=== PATIENT | female | born 1985 ===

== ENCOUNTER 2017-05-21 18:12 | Emergency (ER) | payer MEDICAID ==
[2017-05-21 18:38] VITALS: PULSE 68; RESP 18; TEMP 97.8; O2SAT 100
[2017-05-21] MEDS ORDERED: TDAP Vaccine 0.5 mL Syr IM ONE (19:34)
--- NOTE | 2017-05-21 19:38 | ED PDOC ---
HPI: Skin/Bite Injury Time Seen by Provider: 05/21/17 18:22 Chief Complaint (Nursing): Bite Chief Complaint (Provider): Dog bite, left humb History Per: Patient History/Exam Limitations: no limitations Onset/Duration Of Symptoms: Hrs Current Symptoms Are (Timing): Better Quality Of Symptoms: Painful Severity: Mild Pain Scale Rating Of: 2 Additional Complaint(s): Pt states she has unknown tetanus. PT states an older man was walking a small white dog who looked well maintained. The man said the dog is his granddaughter and it goes to the vet but is not sure about immunization status. Pt states that she has a small amount of localized pain. Past Medical History Vital Signs: Last Vital Signs Temp 97.8 F 05/21/17 18:36 Pulse 68 05/21/17 18:36 Resp 18 05/21/17 18:36 BP Pulse Ox 100 05/21/17 18:36 - Surgical History Surgical History: No Surg Hx - Family History Family History: States: No Known Family Hx - Home Medications Home Medications: Ambulatory Orders Medication Instructions Recorded Doxycycline Monohydrate 100 mg PO BID #28 tablet 02/13/16 Naproxen 375 mg PO Q8 PRN #21 tab 02/13/16 oxyCODONE [oxyCODONE Immediate 5 mg PO Q8 PRN #8 tab 02/13/16 Release Tab] Doxycycline Monohydrate 100 mg PO BID #20 capsule 05/21/17 - Allergies Allergies/Adverse Reactions: Allergies Allergy/AdvReac Type Severity Reaction Status Date / Time acetaminophen [From Tylenol] Allergy ANAPHYLAXIS Verified 02/13/16 18:48 amoxicillin Allergy RASH Verified 05/21/17 18:36 Physical Exam - Reviewed Nursing Documentation Reviewed: Yes Vital Signs Reviewed: Yes - Physical Exam Appears: Positive for: Well, Non-toxic, No Acute Distress Head Exam: Positive for: ATRAUMATIC, NORMAL INSPECTION, NORMOCEPHALIC Skin: Positive for: Warm. Negative for: Normal Color (Small round abrasion/ superficial puncture wound left thumb ) Eye Exam: Positive for: Normal appearance ENT: Positive for: Normal ENT Inspection Neck: Positive for: Normal, Painless ROM Respiratory: Negative for: Accessory Muscle Use, Respiratory Distress Back: Positive for: Normal Inspection Extremity: Positive for: Normal ROM Neurologic/Psych: Positive for: Alert, Oriented - ECG O2 Sat by Pulse Oximetry: 100 Medical Decision Making Medical Decision Making: Pros/Cons of tetanus and rabies vaccine discussed with patient. Disposition - Clinical Impression Clinical Impression: Animal bite wound, Tetanus toxoid vaccination administered at current visit - Patient ED Disposition Is Patient to be Admitted: No Counseled Patient/Family Regarding: Diagnosis, Need For Followup, Rx Given - Disposition Referrals: [facility] [Outside] Disposition: Routine/Home Disposition Time: 19:38 Condition: GOOD Prescriptions: Doxycycline Monohydrate 100 mg PO BID #20 capsule Instructions: Animal Bite (ED)
[2017-05-21 19:50] VITALS: BP 131/71
== END 2017-05-21 19:49 | disposition home or self-care (01) ==
LOC: H.ER 18:12
DX: S61.052A Open bite of left thumb without damage to nail, initial encounter (principal); W54.0XXA Bitten by dog, initial encounter; Y92.89 Other specified places as the place of occurrence of the external cause

== ENCOUNTER 2017-11-25 07:53 | Emergency (ER) | payer BC, MEDICAID, OTHER ==
[2017-11-25 07:59] VITALS: BMI 27.7
[2017-11-25 08:00] VITALS: BP 113/69; PULSE 92; RESP 16; TEMP 98.3; O2SAT 97
--- NOTE | 2017-11-25 09:35 | ED PDOC ---
HPI: General Adult Time Seen by Provider: 11/25/17 08:28 Chief Complaint (Nursing): Flu-like Symptoms Chief Complaint (Provider): Flu-like Symptoms History Per: Patient History/Exam Limitations: no limitations Onset/Duration Of Symptoms: Days (x yesterday) Current Symptoms Are (Timing): Still Present Additional Complaint(s): Joana is a 32 year old female who presents to the emergency department complaining of flu-like symptoms since yesterday. Patient reports fever, cough, headache, body aches and chills. Patient states she took her temperature yesterday and was measured at 102. Patient's daughter is also sick with similar symptoms. No other medical problems at this time. PMD: Provider TBD Past Medical History Reviewed: Historical Data, Nursing Documentation, Vital Signs Vital Signs: Last Vital Signs Temp 98.3 F 11/25/17 07:59 Pulse 92 H 11/25/17 07:59 Resp 16 11/25/17 07:59 BP 113/69 11/25/17 07:59 Pulse Ox 97 11/25/17 09:40 - Medical History PMH: No Chronic Diseases - Surgical History Surgical History: No Surg Hx - Family History Family History: States: Unknown Family Hx - Social History Current smoker - smoking cessation education provided: No Alcohol: None Drugs: Denies - Home Medications Home Medications: Ambulatory Orders Medication Instructions Recorded Doxycycline Monohydrate 100 mg PO BID #28 tablet 02/13/16 Naproxen 375 mg PO Q8 PRN #21 tab 02/13/16 oxyCODONE [oxyCODONE Immediate 5 mg PO Q8 PRN #8 tab 02/13/16 Release Tab] Doxycycline Monohydrate 100 mg PO BID #20 capsule 05/21/17 Loratadine/Pseudoephedrine 1 each PO DAILY PRN #5 tab.er.24h 11/25/17 [Claritin-D 24 Hour Tablet] - Allergies Allergies/Adverse Reactions: Allergies Allergy/AdvReac Type Severity Reaction Status Date / Time acetaminophen [From Tylenol] Allergy ANAPHYLAXIS Verified 02/13/16 18:48 amoxicillin Allergy RASH Verified 05/21/17 18:36 Review of Systems ROS Statement: Except As Marked, All Systems Reviewed And Found Negative Constitutional: Positive for: Fever, Chills, Other (Body aches) Respiratory: Positive for: Cough Neurological: Positive for: Headache Physical Exam - Reviewed Nursing Documentation Reviewed: Yes Vital Signs Reviewed: Yes - Physical Exam Appears: Positive for: Well, Non-toxic Head Exam: Positive for: ATRAUMATIC, NORMAL INSPECTION, NORMOCEPHALIC Skin: Positive for: Normal Color, Warm, Dry Eye Exam: Positive for: Normal appearance ENT: Positive for: Normal ENT Inspection (Clear), Pharynx Is (Clear), TM Is/Are (WNL), Nasal Congestion. Negative for: Sinus Pain/Drainage, Pharyngeal Erythema , Tonsillar Exudate, Tonsillar Swelling Neck: Positive for: Normal Cardiovascular/Chest: Positive for: Regular Rate, Rhythm Respiratory: Positive for: Normal Breath Sounds. Negative for: Respiratory Distress Gastrointestinal/Abdominal: Positive for: Normal Exam Back: Positive for: Normal Inspection Extremity: Positive for: Normal ROM. Negative for: Deformity Neurologic/Psych: Positive for: Alert, Oriented (x 3) - ECG O2 Sat by Pulse Oximetry: 97 (RA) Pulse Ox Interpretation: Normal Medical Decision Making Medical Decision Making: Time: 08:49 Impression: Nasal Congestion Plan: - ED Urine - Influenza A B Stat Time: 09:00 (-) for flu a/b Scribe Attestation: Documented by Pino Mario, acting as a scribe for Anna Croft MD Provider Scribe Attestation: All medical record entries made by the Scribe were at my direction and personally dictated by me. I have reviewed the chart and agree that the record accurately reflects my personal performance of the history, physical exam, medical decision making, and the department course for this patient. I have also personally directed, reviewed, and agree with the discharge instructions and disposition. Disposition - Clinical Impression Clinical Impression: URI (upper respiratory infection) - Disposition Referrals: [facility] [Outside] Disposition: Routine/Home Disposition Time: 10:03 Condition: STABLE Prescriptions: Loratadine/Pseudoephedrine [Claritin-D 24 Hour Tablet] 1 each PO DAILY PRN #5 tab.er.24h PRN Reason: Allergy Symptoms Instructions: Upper Respiratory Infection (ED) Forms: [facility] (Vincentian) Print Language: MALTESE
== END 2017-11-25 10:16 | disposition home or self-care (01) ==
LOC: H.ER 07:53
DX: J06.9 Acute upper respiratory infection, unspecified (principal)

== ENCOUNTER 2018-04-15 09:45 | Emergency (ER) | payer OTHER ==
[2018-04-15 09:46] VITALS: BMI 27.7
--- NOTE | 2018-04-15 10:21 | ED PDOC ---
HPI: Female Pain Time Seen by Provider: 04/15/18 10:12 Chief Complaint (Provider): with abd pain and bleeding History Per: Patient Additional Complaint(s): 32-year-old female currently 4 weeks (LMP March 15) presents with abdominal pain and spotting that started yesterday. Patient also has dysuria. She denies any fever or chills. Patient has nausea with no vomiting. This is her third and she denies history of miscarriage or ectopic (). OB: Dr. Arnold Past Medical History Reviewed: Historical Data, Nursing Documentation, Vital Signs - Medical History PMH: No Chronic Diseases - Surgical History Surgical History: No Surg Hx - Family History Family History: States: No Known Family Hx - Living Arrangements Living Arrangements: With Family - Social History Current smoker - smoking cessation education provided: No Ex-Smoker (has not smoked in the last 12 months): No Alcohol: None Drugs: Denies - Home Medications Home Medications: Ambulatory Orders Medication Instructions Recorded Doxycycline Monohydrate 100 mg PO BID #28 tablet 02/13/16 Naproxen 375 mg PO Q8 PRN #21 tab 02/13/16 oxyCODONE [oxyCODONE Immediate 5 mg PO Q8 PRN #8 tab 02/13/16 Release Tab] Doxycycline Monohydrate 100 mg PO BID #20 capsule 05/21/17 Loratadine/Pseudoephedrine 1 each PO DAILY PRN #5 tab.er.24h 11/25/17 [Claritin-D 24 Hour Tablet] Nitrofurantoin Macrocrystals 100 mg PO BID #14 cap 04/15/18 [Macrobid] Comb No.42/Folic Acid 1 tab PO DAILY #60 tab 04/15/18 [Prena1 Chew] - Allergies Allergies/Adverse Reactions: Allergies Allergy/AdvReac Type Severity Reaction Status Date / Time acetaminophen [From Tylenol] Allergy ANAPHYLAXIS Verified 02/13/16 18:48 amoxicillin Allergy RASH Verified 05/21/17 18:36 Review of Systems ROS Statement: Except As Marked, All Systems Reviewed And Found Negative Constitutional: Negative for: Fever Cardiovascular: Negative for: Chest Pain Respiratory: Negative for: Cough Gastrointestinal: Positive for: Nausea, Abdominal Pain. Negative for: Vomiting Genitourinary Female: Positive for: Dysuria, Vaginal Bleeding (spotting), Pelvic Pain Physical Exam - Reviewed Nursing Documentation Reviewed: Yes Vital Signs Reviewed: Yes - Physical Exam Appears: Positive for: Well, Non-toxic, No Acute Distress Skin: Positive for: Normal Color. Negative for: Rash Eye Exam: Positive for: Normal appearance Cardiovascular/Chest: Positive for: Regular Rate, Rhythm Respiratory: Positive for: Normal Breath Sounds. Negative for: Wheezing, Respiratory Distress Gastrointestinal/Abdominal: Positive for: Soft. Negative for: Tenderness, Distended, Guarding, Rebound Back: Negative for: L CVA Tenderness, R CVA Tenderness Extremity: Positive for: Normal ROM Neurologic/Psych: Positive for: Alert, Oriented - Laboratory Results Result Diagrams: 04/15/18 11:19 04/15/18 11:19 Urine POC: Positive - ECG O2 Sat by Pulse Oximetry: 99 Pulse Ox Interpretation: Normal - Other Rad TV OB US X-Ray: Read By Radiologist X-Ray Interpretation: see below Medical Decision Making Medical Decision Makin32 year old female with abdominal pain and spotting Plan: Urine dip Urine test CBC CMP Beta TV OB US IVF UTI noted - will given rx macrobid US: FINDINGS: UTERUS: Measures 9.0 x 4.1 x 4.8 cm. Normal in size and appearance. No fibroid or other mass lesion seen. ENDOMETRIUM: Measures 15 mm in diameter. No intrauterine gestational sac identified. Cannot rule out ectopic in the absence of an intrauterine gestation. CERVIX: No cervical abnormality identified. RIGHT OVARY: Measures 2.4 x 1.5 x 1.8 cm. No solid mass. Normal flow. LEFT OVARY: Measures 2.4 x 1.8 x 1.9 cm. No solid mass. Normal flow. FREE FLUID: No significant free fluid noted. OTHER FINDINGS : None. IMPRESSION: No intrauterine gestation identified. Cannot rule out ectopic . Followup with serial beta HCG evaluation and if warranted, transvaginal pelvic ultrasound examination. Otherwise unremarkable. Beta is 765. Patient aware of all diagnostic testing results, all questions answered. Patient was instructed to follow up with OB in 2-3 days for repeat labs. Prescriptions given for Macrobid and vitamins. Disposition - Clinical Impression Clinical Impression: Urinary tract infection, Abdominal pain during - Patient ED Disposition Is Patient to be Admitted: No Counseled Patient/Family Regarding: Studies Performed, Diagnosis, Need For Followup, Rx Given - Disposition Referrals: Yovani Cm DPM [Primary Care Provider] - José Miguel Arnold MD [Staff Provider] - Disposition: Routine/Home Disposition Time: 13:42 Condition: STABLE Additional Instructions: Take prescription meds as directed. Follow-up with OB for repeat labs in 4-5 days. Prescriptions: Nitrofurantoin Macrocrystals [Macrobid] 100 mg PO BID #14 cap Comb No.42/Folic Acid [Prena1 Chew] 1 tab PO DAILY #60 tab Instructions: Urinary Tract Infections in Adults, - The First Month Results - Lab Results Lab Results: 04/15/18 04/15/18 04/15/18 11:19 11:19 11:19 WBC 6.9 RBC 4.23 Hgb 12.3 Hct 38.1 MCV 90.0 D MCH 29.1 MCHC 32.3 L RDW 14.1 Plt Count 289 MPV 8.1 Neut % (Auto) 73.8 Lymph % (Auto) 19.7 L [place] % (Auto) 5.6 Eos % (Auto) 0.4 Baso % (Auto) 0.5 Neut # (Auto) 5.1 Lymph # (Auto) 1.4 [place] # (Auto) 0.4 Eos # (Auto) 0.0 Baso # (Auto) 0.0 Sodium 137 Potassium 3.8 Chloride 106 Carbon Dioxide 23 Anion Gap 12 BUN 11 Creatinine 0.5 L Est GFR ( Amer) > 60 Est GFR (Non-Af Amer) > 60 Random Glucose 90 Calcium 8.8 Total Bilirubin 0.9 AST 23 ALT 18 Alkaline Phosphatase 81 Total Protein 7.8 Albumin 3.8 Globulin 4.0 H Albumin/Globulin Ratio 0.9 L Beta HCG, Quant 768.25 Urine Color Yellow Urine Clarity Hazy Urine pH 5.5 Ur Specific [place] 1.030 Urine Protein Negative Urine Glucose (UA) Neg Urine Ketones Negative Urine Blood Negative Urine Nitrate Negative Urine Bilirubin Negative Urine Urobilinogen 0.2 Ur Leukocyte Esterase Small Urine RBC (Auto) 17 H Urine Microscopic WBC 52 H Ur Squamous Epith Cells 35 H Urine Bacteria Occ H
[2018-04-15 10:27] VITALS: PULSE 87; RESP 16; O2SAT 99
[2018-04-15] MEDS ORDERED: Sodium Chloride 0.9% 1,000 ML IV STA (10:49)
[2018-04-15 11:24] LABS: BASO % 0.5 % (0.0-2.0); EOS % 0.4 % (0.0-4.0); HEMOGLOBIN 12.3 g/dL (12.0-16.0); LYMPH # 1.4 K/uL (1.0-4.3); LYMPH % 19.7 % (20.0-40.0); MEAN CORPUSCULAR HEMOGLOBIN 29.1 pg (27.0-31.0); MEAN CORPUSCULAR HGB CONC 32.3 g/dL (33.0-37.0); MEAN PLATELET VOLUME 8.1 fl (7.2-11.7); MONO # 0.4 K/uL (0.0-0.8); MONO % 5.6 % (0.0-10.0); NEUT # 5.1 K/uL (1.8-7.0); NEUT % 73.8 % (50.0-75.0); RBC 4.23 Mil/uL (3.80-5.20); RED CELL DISTRIBUTION WIDTH 14.1 % (11.5-14.5); WHITE BLOOD COUNT 6.9 K/uL (4.8-10.8)
[2018-04-15 11:34] LABS: SQUAMOUS EPITHIAL 35 /hpf (0-5); URINE BACTERIA OCC (<OCC)
[2018-04-15 11:37] LABS: ALB/GLOB RATIO 0.9 (1.0-2.1); ALBUMIN 3.8 g/dL (3.5-5.0); ALT/SGPT 18 U/L (9-52); AST/SGOT 23 U/L (14-36); BLOOD UREA NITROGEN 11 mg/dl (7-17); CALCIUM 8.8 mg/dL (8.4-10.2); GFR AFRICAN-AMERICAN > 60; GFR NON-AFRICAN AMERICAN > 60
[2018-04-15 11:49] LABS: PH,URINE 5.5 (5.0-8.0); URINE BILIRUBIN NEGATIVE (NEGATIVE); URINE BLOOD NEGATIVE (NEGATIVE); URINE CLARITY Hazy (Clear); URINE COLOR YELLOW (YELLOW); URINE GLUCOSE (UA) NEG (Normal)
[2018-04-15 11:50] LABS: URINE LEUKOCYTE ESTERASE SMALL Leu/uL (Negative); URINE PROTEIN NEGATIVE (NEGATIVE); URINE UROBILINOGEN 0.2 mg/dL (0.2-1.0)
--- NOTE | 2018-04-15 13:24 | US ---
HISTORY: approx 5 weeks with pain and bleeding COMPARISON: None available. TECHNIQUE: Transvaginal FINDINGS: UTERUS: Measures 9.0 x 4.1 x 4.8 cm. Normal in size and appearance. No fibroid or other mass lesion seen. ENDOMETRIUM: Measures 15 mm in diameter. No intrauterine gestational sac identified. Cannot rule out ectopic in the absence of an intrauterine gestation. CERVIX: No cervical abnormality identified. RIGHT OVARY: Measures 2.4 x 1.5 x 1.8 cm. No solid mass. Normal flow. LEFT OVARY: Measures 2.4 x 1.8 x 1.9 cm. No solid mass. Normal flow. FREE FLUID: No significant free fluid noted. OTHER FINDINGS: None. IMPRESSION: No intrauterine gestation identified. Cannot rule out ectopic . Followup with serial beta HCG evaluation and if warranted, transvaginal pelvic ultrasound examination. Otherwise unremarkable.
[2018-04-15 14:25] VITALS: BP 118/70; TEMP 97.4
== END 2018-04-15 14:24 | disposition home or self-care (01) ==
LOC: H.ER 09:45
DX: O23.41 Unspecified infection of urinary tract in pregnancy, first trimester (principal); Z3A.01 Less than 8 weeks gestation of pregnancy; Z88.0 Allergy status to penicillin
CPT/HCPCS: 76817; 80053; 81003; 81025; 84702; 85025; 87086; 87181; 96360; 99283; J7030

== ENCOUNTER 2018-04-17 18:34 | Emergency (ER) | payer OTHER ==
[2018-04-17 18:34] VITALS: BMI 27.7
[2018-04-17 18:49] VITALS: RESP 16
--- NOTE | 2018-04-17 18:58 | ED PDOC ---
HPI: Female Pain Time Seen by Provider: 04/17/18 18:55 Chief Complaint (Nursing): Female Genitourinary Chief Complaint (Provider): uti History Per: Patient (32 y/o female here called to return for treatment of UTI. Patient is and has had UTI inert to macrobid. Patient has h/o allergy to amoxicillin. Denies any fevers or chills currently.) Past Medical History Reviewed: Historical Data, Nursing Documentation, Vital Signs Vital Signs: Last Vital Signs Temp 98.6 F 04/17/18 18:47 Pulse 92 H 04/17/18 18:47 Resp 16 04/17/18 18:47 BP 130/80 04/17/18 18:47 Pulse Ox 100 04/17/18 18:47 - Family History Family History: States: Unknown Family Hx - Immunization History Hx Tetanus Toxoid Vaccination: Yes Hx Influenza Vaccination: No Hx Pneumococcal Vaccination: No - Home Medications Home Medications: Ambulatory Orders Medication Instructions Recorded Doxycycline Monohydrate 100 mg PO BID #28 tablet 02/13/16 Naproxen 375 mg PO Q8 PRN #21 tab 02/13/16 oxyCODONE [oxyCODONE Immediate 5 mg PO Q8 PRN #8 tab 02/13/16 Release Tab] Doxycycline Monohydrate 100 mg PO BID #20 capsule 05/21/17 Loratadine/Pseudoephedrine 1 each PO DAILY PRN #5 tab.er.24h 11/25/17 [Claritin-D 24 Hour Tablet] Nitrofurantoin Macrocrystals 100 mg PO BID #14 cap 04/15/18 [Macrobid] Comb No.42/Folic Acid 1 tab PO DAILY #60 tab 04/15/18 [Prena1 Chew] Cephalexin [Keflex] 500 mg PO TID #15 capsule 04/17/18 Ondansetron ODT [Zofran ODT] 4 mg PO Q8 PRN #10 odt 04/17/18 - Allergies Allergies/Adverse Reactions: Allergies Allergy/AdvReac Type Severity Reaction Status Date / Time acetaminophen [From Tylenol] Allergy ANAPHYLAXIS Verified 02/13/16 18:48 amoxicillin Allergy RASH Verified 05/21/17 18:36 Review of Systems ROS Statement: Except As Marked, All Systems Reviewed And Found Negative Physical Exam - Reviewed Nursing Documentation Reviewed: Yes Vital Signs Reviewed: Yes - Physical Exam Appears: Positive for: Well, Non-toxic, No Acute Distress Head Exam: Positive for: ATRAUMATIC, NORMAL INSPECTION, NORMOCEPHALIC Skin: Positive for: Normal Color, Warm, DRY Eye Exam: Positive for: EOMI, Normal appearance, PERRL ENT: Positive for: Normal ENT Inspection Neck: Positive for: Normal, Painless ROM Cardiovascular/Chest: Positive for: Regular Rate, Rhythm Respiratory: Positive for: CNT, Normal Breath Sounds Gastrointestinal/Abdominal: Positive for: Normal Exam, Soft Back: Positive for: Normal Inspection Extremity: Positive for: Normal ROM Neurologic/Psych: Positive for: Alert, Oriented - ECG O2 Sat by Pulse Oximetry: 100 Disposition - Clinical Impression Clinical Impression: Urinary tract infection - Patient ED Disposition Is Patient to be Admitted: No - Disposition Disposition: Routine/Home Disposition Time: 20:06 Condition: FAIR Prescriptions: Cephalexin [Keflex] 500 mg PO TID #15 capsule Ondansetron ODT [Zofran ODT] 4 mg PO Q8 PRN #10 odt PRN Reason: Nausea/Vomiting Instructions: Urinary Tract Infections in Adults, Nausea and Vomiting of (DC) Forms: [facility] ED School/Work Excuse Print Language: SWEDISH
[2018-04-17 20:57] VITALS: BP 126/77; PULSE 84; TEMP 98.2; O2SAT 99
== END 2018-04-17 20:34 | disposition home or self-care (01) ==
LOC: H.ER 18:34
DX: O23.40 Unspecified infection of urinary tract in pregnancy, unspecified trimester (principal)

== ENCOUNTER 2018-06-04 10:55 | Emergency (ER) | payer OTHER ==
[2018-06-04 11:01] VITALS: BMI 27.3
[2018-06-04 11:14] VITALS: RESP 16
--- NOTE | 2018-06-04 11:48 | ED PDOC ---
HPI: Skin/Bite Injury Time Seen by Provider: 06/04/18 11:09 Chief Complaint (Nursing): Abnormal Skin Integrity Chief Complaint (Provider): Rash History Per: Patient History/Exam Limitations: no limitations Onset/Duration Of Symptoms: Days (1) Current Symptoms Are (Timing): Still Present Location Of Injury: Right: Arm, Left: Arm, Anterior: Abdomen, Arm Additional History Per: Patient Additional Complaint(s): 33yo female, no past medical history, comes to ER for evaluation of a rash to her bilateral anterior forearms and her anterior abdomen x 1 day. She denies any itching or pain, throat swelling, or shortness of breath. Patient also denies any new foods, linen, or lotions. She does state she was started on Ambien 1 week ago by her doctor, and also 1 week ago she was diagnosed with a viral gastroenteritis with a mild fever. Patient states she took Aleve with relief of symptoms at that time. Additionally, patient states she had a D&C procedure on 05/10/18 and states she was not given any antibiotics or pain medication after; she is now complaining of lower abdomen pain. She denies any vomiting, diarrhea, abnormal vaginal discharge or bleeding. PMD: Yovani Cm Past Medical History Reviewed: Historical Data, Nursing Documentation, Vital Signs Vital Signs: Last Vital Signs Temp 99.0 F 06/04/18 11:11 Pulse 84 06/04/18 11:11 Resp 16 06/04/18 11:11 BP 110/75 06/04/18 11:11 Pulse Ox 99 06/04/18 11:59 - Medical History PMH: No Chronic Diseases - Surgical History Other surgeries: D&C - Family History Family History: States: No Known Family Hx - Immunization History Hx Tetanus Toxoid Vaccination: Yes Hx Influenza Vaccination: No Hx Pneumococcal Vaccination: No - Home Medications Home Medications: Ambulatory Orders Medication Instructions Recorded Doxycycline Monohydrate 100 mg PO BID #28 tablet 02/13/16 Naproxen 375 mg PO Q8 PRN #21 tab 02/13/16 oxyCODONE [oxyCODONE Immediate 5 mg PO Q8 PRN #8 tab 02/13/16 Release Tab] Doxycycline Monohydrate 100 mg PO BID #20 capsule 05/21/17 Loratadine/Pseudoephedrine 1 each PO DAILY PRN #5 tab.er.24h 11/25/17 [Claritin-D 24 Hour Tablet] Nitrofurantoin Macrocrystals 100 mg PO BID #14 cap 04/15/18 [Macrobid] Comb No.42/Folic Acid 1 tab PO DAILY #60 tab 04/15/18 [Prena1 Chew] Cephalexin [Keflex] 500 mg PO TID #15 capsule 04/17/18 Ondansetron ODT [Zofran ODT] 4 mg PO Q8 PRN #10 odt 04/17/18 - Allergies Allergies/Adverse Reactions: Allergies Allergy/AdvReac Type Severity Reaction Status Date / Time acetaminophen [From Tylenol] Allergy ANAPHYLAXIS Verified 02/13/16 18:48 amoxicillin Allergy RASH Verified 05/21/17 18:36 Review of Systems ROS Statement: Except As Marked, All Systems Reviewed And Found Negative Constitutional: Negative for: Fever, Chills Gastrointestinal: Positive for: Abdominal Pain (lower). Negative for: Vomiting , Diarrhea Genitourinary Female: Negative for: Vaginal Discharge, Vaginal Bleeding Skin: Positive for: Rash Physical Exam - Reviewed Nursing Documentation Reviewed: Yes Vital Signs Reviewed: Yes - Physical Exam Appears: Positive for: Non-toxic, No Acute Distress Head Exam: Positive for: ATRAUMATIC, NORMAL INSPECTION, NORMOCEPHALIC Skin: Positive for: Warm, Dry, Rash (maculopapular rash noted to bilateral anterior forearms, and anterior abdomen.) Eye Exam: Positive for: Normal appearance Neck: Positive for: Normal, Painless ROM, Supple Cardiovascular/Chest: Positive for: Regular Rate, Rhythm. Negative for: Murmur Respiratory: Positive for: Normal Breath Sounds. Negative for: Rales, Rhonchi, Wheezing Gastrointestinal/Abdominal: Positive for: Soft, Tenderness (mild suprapubic tendereness). Negative for: Guarding, Rebound Back: Positive for: Normal Inspection. Negative for: L CVA Tenderness, R CVA Tenderness Extremity: Positive for: Normal ROM. Negative for: Pedal Edema Neurologic/Psych: Positive for: Alert, Oriented. Negative for: Motor/Sensory Deficits - Laboratory Results Result Diagrams: 06/04/18 11:30 06/04/18 11:30 - ECG O2 Sat by Pulse Oximetry: 99 (RA) Pulse Ox Interpretation: Normal Medical Decision Making Medical Decision Making: Impression: Viral rash, lower abdominal pain Plan: -- Labs -- Urinalysis -- US Transvaginal -- Serum Beta-HCG Scribe Attestation: Documented by Lis Mccain, acting as a scribe for Laxmi German MD. Provider Scribe Attestation: All medical record entries made by the Scribe were at my direction and personally dictated by me. I have reviewed the chart and agree that the record accurately reflects my personal performance of the history, physical exam, medical decision making, and the department course for this patient. I have also personally directed, reviewed, and agree with the discharge instructions and disposition. Disposition - Clinical Impression Clinical Impression: [place] - Patient ED Disposition Is Patient to be Admitted: No Doctor Will See Patient In The: Office Counseled Patient/Family Regarding: Diagnosis, Need For Followup - Disposition Disposition: Routine/Home Disposition Time: 13:00 Condition: STABLE Additional Instructions: Consider stopping medication and calling your personal physician for a replacement medication for sleep. Instructions: Skin Rash Forms: [facility] (Greek) - POA Present On Arrival: None
[2018-06-04 11:59] LABS: BASO % 0.6 % (0.0-2.0); EOS # 0.1 K/uL (0.0-0.7); EOS % 1.5 % (0.0-4.0); HEMOGLOBIN 12.9 g/dL (12.0-16.0); LYMPH # 1.1 K/uL (1.0-4.3); LYMPH % 27.4 % (20.0-40.0); MEAN CELL VOLUME 86.4 fl (81.0-99.0); MEAN CORPUSCULAR HEMOGLOBIN 28.9 pg (27.0-31.0); MEAN CORPUSCULAR HGB CONC 33.4 g/dL (33.0-37.0); MEAN PLATELET VOLUME 8.1 fl (7.2-11.7); MONO # 0.3 K/uL (0.0-0.8); MONO % 7.1 % (0.0-10.0); NEUT # 2.5 K/uL (1.8-7.0); NEUT % 63.4 % (50.0-75.0); NRBC % 0.3 % (0.0-0.0); RBC 4.47 Mil/uL (3.80-5.20); RED CELL DISTRIBUTION WIDTH 13.3 % (11.5-14.5); SQUAMOUS EPITHIAL 4 /hpf (0-5); URINE BACTERIA OCC (<OCC); URINE BILIRUBIN NEGATIVE (NEGATIVE); URINE BLOOD SMALL (NEGATIVE); URINE CLARITY SLIGHTY-CLOUDY (Clear); URINE COLOR YELLOW (YELLOW); URINE GLUCOSE (UA) NEG (Normal); URINE LEUKOCYTE ESTERASE TRACE Leu/uL (Negative); URINE PROTEIN NEGATIVE (NEGATIVE); URINE UROBILINOGEN 0.2-1.0 mg/dL (0.2-1.0)
[2018-06-04 12:09] LABS: ALB/GLOB RATIO 1.1 (1.0-2.1); ALBUMIN 4.3 g/dL (3.5-5.0); ALT/SGPT 21 U/L (9-52); AST/SGOT 37 U/L (14-36); BLOOD UREA NITROGEN 9 mg/dl (7-17); CALCIUM 8.9 mg/dL (8.4-10.2); GFR AFRICAN-AMERICAN > 60; GFR NON-AFRICAN AMERICAN > 60
--- NOTE | 2018-06-04 13:21 | US ---
Date of service: 06/04/2018 HISTORY: s/p TOP 05/10/2018 - still has mild lower abd pain COMPARISON: Comparison made with prior pelvic ultrasound 04/15/2018. TECHNIQUE: Transvaginal sonographic evaluation of the pelvis performed. FINDINGS: UTERUS: Anteverted measuring approximately 8.1 x the the 5.7 x 3.9 cm. Normal in size and appearance. No fibroid or other mass lesion seen. ENDOMETRIUM: Measures 3.6 mm in diameter. Unremarkable. CERVIX: No cervical abnormality identified. RIGHT OVARY: Measures 2.3 x 2.6 x 1.5 cm. No solid mass. Normal flow. Small follicular cysts present LEFT OVARY: Measures 2.1 x 3.2 x 2.1 cm. No solid mass. Normal flow. Small follicular cysts present FREE FLUID: No significant free fluid noted. OTHER FINDINGS: None. IMPRESSION: Unremarkable pelvic ultrasound. .
[2018-06-04 14:09] VITALS: BP 115/72; PULSE 75; TEMP 98.3; O2SAT 100
== END 2018-06-04 14:09 | disposition home or self-care (01) ==
LOC: H.ER 10:55
DX: R21 Rash and other nonspecific skin eruption (principal)